=== PATIENT | male | born 2000 | race Hispanic/Latino ===

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

== ENCOUNTER 2021-02-22 16:51 | Emergency (ER) | payer SELFPAY ==
[2021-02-22] MEDS ORDERED: Ibuprofen 800 MG TAB ONE (19:03)
== END 2021-02-22 19:14 | disposition home or self-care (01) ==
LOC: ERS 16:51
DX: M25.562 Pain in left knee (principal)

== ENCOUNTER 2023-05-02 00:09 | Emergency (ER) | payer SELFPAY ==
[2023-05-02] MEDS ORDERED: Dexamethasone 10 MG/ML VIAL ONE (01:11)
[2023-05-02] MEDS ORDERED: Orphenadrine Citrate 60 MG/2 ML VIAL ONE (01:11)
[2023-05-02] MEDS ORDERED: HYDROcodone/Acetaminophen 5/325 mg Tablet ONE (01:12)
== END 2023-05-02 02:32 | disposition home or self-care (01) ==
LOC: ERS 00:09
DX: S39.012A Strain of muscle, fascia and tendon of lower back, initial encounter (principal); M54.42 Lumbago with sciatica, left side; Z55.6 Problems related to health literacy; X50.1XXA Overexertion from prolonged static or awkward postures, initial encounter; Y93.66 Activity, soccer
CPT/HCPCS: 96372; 99282; J1100; J2360